=== PATIENT | male | born 2000 | race Caucasian/White ===

== ENCOUNTER 2022-07-20 08:33 | Outpatient (CLI) | payer OTHER | END 2022-07-20 08:34 | disposition home or self-care (01) | LOC: CSHMRI 08:33 | PROVIDERS: ATTEND Family Medicine | DX: S43.001D Unspecified subluxation of right shoulder joint, subsequent encounter (principal); S40.011D Contusion of right shoulder, subsequent encounter; S46.911D Strain of unspecified muscle, fascia and tendon at shoulder and upper arm level, right arm, subsequent encounter; S43.431A Superior glenoid labrum lesion of right shoulder, initial encounter ==